=== PATIENT | female | born 1985 | race Caucasian/White ===

== ENCOUNTER → 2021-01-21 14:25 | Outpatient (CLI) | payer BC, SELFPAY | PROVIDERS: Visit Provider Family Medicine | DX: N39.0 Urinary tract infection, site not specified (principal) | CPT/HCPCS: 87086 ==

== ENCOUNTER 2021-08-16 12:31 | Emergency (ER) | payer BC, SELFPAY ==
[2021-08-16 12:32] VITALS: BP 144/99; PULSE 106; RESP 20; TEMP 36.7; O2SAT 98; BMI 25.8
--- NOTE | 2021-08-16 12:45 | [facility].EDGENADL ---
ED Disposition Clinical Impression: Walking pneumonia Disposition: Home, Self-Care Condition on Discharge: Good Instructions: Pneumonia-Adult Additional Instructions: return for worse or any concerns Prescriptions: predniSONE [Prednisone 20mg Tab] 60 mg PO DAILY 3 Days #9 tab Transmission Status: Received by [facility] Albuterol Sulfate [Proair Hfa] 2 puffs IH Q6 PRN 7 Days #1 each PRN Reason: Wheezing Transmission Status: Received by [facility] Azithromycin [Zithromax 500mg Tab Tri-Juni] 500 mg PO DAILY #3 tab Transmission Status: Received by [facility] Referrals: Basil Pereira MD [Primary Care Provider] - Forms: Work/School Release Time of Disposition: 12:52 - Critical Care Critical Care Time: No Attestation: On 08/16/21, the high probability of a clinically significant, sudden or life threatening deterioration of the following system(s) required my full and direct attention, intervention and personal management. The time I documented below is in addition to time spent performing reported procedures but includes the following listed in this critical care notation. Medical Decision Making - Eric Inquiry Pt receiving controlled substance: No Vital Signs: 08/16/21 12:32 08/16/21 13:02 Temperature 98.1 F 98.1 F Temperature Source Oral Pulse Rate 106 H Pulse Rate [Left Radial] 106 H Respiratory Rate 20 20 Blood Pressure 144/99 H Blood Pressure [Right Arm] 144/99 H Blood Pressure Mean [Right Arm] 114 Blood Pressure Source [Right Arm] Automatic Cuff Blood Pressure Position [Right Arm] Sitting 02 Sat by Pulse Oximetry 98 Oxygen Delivery Method Room Air Room Air General Adult HPI - General Chief complaint: Upper Respiratory Infection Stated complaint: soa, cough, runny nose Time Seen by Provider: 08/16/21 12:55 - History of Present Illness HPI narrative: prod cough, soa with exertion, rn 1 week, neg covid x2 Onset (ago): week(s) Severity: moderate Consistency: constant Relieving factors: rest Exacerbating factors: none - Related Data Previous Rx's Medication Instructions Recorded azithromycin 500 mg tablet 500 mg PO DAILY 3 Days #3 tab 01/21/21 methylprednisolone 4 mg tablets in See Rx Instructions PO PER PKG DIR 01/21/21 a dose pack #21 tab Albuterol Sulfate [Proair Hfa] 2 puffs IH Q6 PRN 7 Days #1 each 08/16/21 Azithromycin [Zithromax 500mg Tab 500 mg PO DAILY #3 tab 08/16/21 Tri-Juni] predniSONE [Prednisone 20mg 60 mg PO DAILY 3 Days #9 tab 08/16/21 Tab] Allergies Allergy/AdvReac Type Severity Reaction Status Date / Time Penicillins Allergy Unknown Verified 01/21/21 09:13 [facility] History - Hepatitis A Screen Drug use history?: No Attestation statement:: This patient has been screened for Hepatitis A risk factors. I have reviewed the patient's past medical history: Yes Medical History: Reports:: Anxiety, Depression Other Surgeries: Yes: Cholecystectomy - Social History Smoking Status: Current every day smoker Tobacco Type: cigarettes # Packs/Day (cigarettes): 1 Alcohol Intake: never Occupational Status: unemployed Household Members: spouse - Psychiatric History Pschychiatric History:: Reports:: Anxiety, Depression ROS Obtained: Yes All systems reviewed & no additional complaints Physical Exam cough - General General appearance: alert, in no apparent distress - Eye Eye exam: Present: normal appearance, EOMI - ENT ENT exam: Present: normal exam - Chest Chest inspection: Present: other (michael exp wheeze and faint rhonchi at bases) - Respiratory Respiratory exam: Present: wheezes. Absent: respiratory distress, accessory muscle use, prolonged expiratory phase - Cardiovascular Cardiovascular exam: Present: regular rate, normal rhythm - Neurological Exam Neurological exam: Present: alert
[2021-08-16 13:02] VITALS: BP 144/99; PULSE 106; RESP 20; TEMP 36.7; O2SAT 98
== END 2021-08-16 13:03 | disposition home or self-care (01) ==
PROVIDERS: Emergency Provider Emergency Medicine; PCP Family Medicine
DX: J18.9 Pneumonia, unspecified organism (principal); F41.8 Other specified anxiety disorders; F17.210 Nicotine dependence, cigarettes, uncomplicated; Z88.0 Allergy status to penicillin
CPT/HCPCS: 99281